=== PATIENT | male | born 1990 | race Caucasian/White ===

== ENCOUNTER 2018-05-16 09:41 | Emergency (ER) | payer MEDICAID ==
[2018-05-16] MEDS ORDERED: Ketorolac 60 MG/2 ML SDV IM ONE (10:09)
--- NOTE | 2018-05-16 10:13 | EDM.PDOC ---
ED HPI GENERAL MEDICAL PROBLEM - General Chief Complaint: Back Pain or Injury Stated Complaint: MID BACK BACK Time Seen by Provider: 05/16/18 10:10 Source of Information: Reports: Patient History Limitations: Reports: No Limitations - History of Present Illness INITIAL COMMENTS - FREE TEXT/NARRATIVE: pt has pain between the shoulder blades for about 2 weeks this is not getting better. He has not had a fall. 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 Onset: Gradual, Other (over a period of 2 weeks. ) Duration: Day(s): Location: Reports: Back Associated Symptoms: Reports: No Other Symptoms upper back Pain Score (Numeric/FACES): 8 - Related Data Allergies Allergy/AdvReac Type Severity Reaction Status Date / Time Penicillins Allergy Swelling Verified 05/16/18 09:55 Sulfa (Sulfonamide Allergy Swelling Verified 05/16/18 09:55 Antibiotics) Home Meds: Home Meds Cyclobenzaprine [Flexeril] 10 mg PO BID 05/16/18 [History] Past Medical History - Past Health History Medical/Surgical History: Denies Medical/Surgical History Social & Family History - Tobacco Use Smoking Status *Q: Current Every Day Smoker Years of Tobacco use: 5 Packs/Tins Daily: 0.5 - Recreational Drug Use Recreational Drug Use: No ED ROS GENERAL - Review of Systems Review Of Systems: See Below Constitutional: Reports: No Symptoms HEENT: Reports: No Symptoms Respiratory: Reports: No Symptoms Cardiovascular: Reports: No Symptoms Endocrine: Reports: No Symptoms GI/Abdominal: Reports: No Symptoms : Reports: No Symptoms Musculoskeletal: Reports: Back Pain, Other (pain between the shoulder blade. ) Skin: Reports: No Symptoms ED EXAM, UPPER BACK/NECK PAIN - Physical Exam Exam: See Below Text/Narrative:: pt arrived with pain between the shoulder blades . He works a [employer]. He has had pain for about 2 weeks. He did not fall or have a definite injury. Exam Limited By: No Limitations General Appearance: Alert, Anxious, Mild Distress Ears Exam: Normal TMs Nose Exam: Normal Inspection Throat/Mouth Exam: Normal Inspection Head Exam: Atraumatic Neck Exam: Non-Tender Cardiovascular/Respiratory: Regular Rate, Rhythm GI/Abdominal: Soft, Non-Tender (Male) Exam: Deferred Rectal (Males) Exam: Deferred Back Exam: Other (pain between the shoulder blades. He has alot of spasm in this site. ) Extremities: Normal Inspection Neurologic: Alert, Oriented x 3 Psychiatric: Normal Affect Course - Vital Signs Last Recorded V/S: Last Vital Signs Temp 36.5 C 05/16/18 09:55 Pulse 75 05/16/18 09:55 Resp 15 05/16/18 09:55 BP 129/77 05/16/18 09:55 Pulse Ox 99 05/16/18 09:55 - Orders/Labs/Meds Orders: Active Orders 24 hr Category Date Time Status Thoracic Spine 3V [CR] Stat Exams 05/16/18 10:09 Taken Meds: Medications Discontinued Medications Generic Name Dose Route Start Last Admin Trade Name Freq PRN Reason Stop Dose Admin Ketorolac Tromethamine 60 mg 05/16/18 10:09 05/16/18 10:36 Toradol IM 05/16/18 10:10 60 mg ONETIME ONE Administration Departure - Departure Time of Disposition: 10:54 Disposition: Home, Self-Care 01 Condition: Fair Clinical Impression: Muscle spasm, Scoliosis deformity of spine - Discharge Information Referrals: PCP,None [Primary Care Provider] - Forms: ED Department Discharge Care Plan Goals: moist warm packs to the mid thoracic spine, cont flexeril, tramodol 50mg q6h prn for pain, pt referal - My Orders Last 24 Hours: My Active Orders 05/16/18 10:09 Thoracic Spine 3V [CR] Stat - Assessment/Plan Last 24 Hours: My Active Orders 05/16/18 10:09 Thoracic Spine 3V [CR] Stat
--- NOTE | 2018-05-18 08:46 | CR ---
Thoracic Spine 3V CLINICAL HISTORY: Back pain FINDINGS: Patient has a levoscoliosis of the thoracic spine The vertebral bodies are normal in height . There is no significant osteophytosis. The pedicles are unremarkable. Impression: Levoscoliosis No fracture or osseous lesion
== END 2018-05-16 11:27 | disposition home or self-care (01) ==
LOC: JP.ED 09:41
DX: M62.830 Muscle spasm of back (principal); M41.9 Scoliosis, unspecified; F17.210 Nicotine dependence, cigarettes, uncomplicated; Z88.0 Allergy status to penicillin; Z88.2 Allergy status to sulfonamides
CPT/HCPCS: 72072; 96372; 99284; J1885

== ENCOUNTER 2018-05-26 07:35 | Emergency (ER) | payer MEDICAID ==
--- NOTE | 2018-05-26 08:18 | EDM.PDOC ---
ED HPI GENERAL MEDICAL PROBLEM - General Chief Complaint: Back Pain or Injury Stated Complaint: LOWER BACK PAIN Time Seen by Provider: 05/26/18 08:18 Source of Information: Reports: Patient History Limitations: Reports: No Limitations - History of Present Illness INITIAL COMMENTS - FREE TEXT/NARRATIVE: 28-year-old male with chronic occasional recurring back discomfort has an acute flare for the past 24 hours of his lower back, when he woke up this morning he couldn't even get out of bed. He became anxious and his fingers started tingling and he felt like he wasn't completely emptying his bladder and got concerned. He has no symptoms extending into the buttocks or lower extremities. He responded well to Toradol a few weeks ago, he just called the physical therapy department yesterday to schedule and appointment. No recent trauma. Onset: Gradual Quality: Reports: Burning, Sharp Severity: Moderate Associated Symptoms: Reports: Other (Hand paresthesias that have resolved, urine flow issues but no incontinence) Lower Back Pain Score (Numeric/FACES): 9 - Related Data Allergies Allergy/AdvReac Type Severity Reaction Status Date / Time Penicillins Allergy Swelling Verified 05/26/18 07:58 Sulfa (Sulfonamide Allergy Swelling Verified 05/26/18 07:58 Antibiotics) Home Meds: Home Meds Cyclobenzaprine [Flexeril] 10 mg PO BID PRN 05/16/18 [History] traMADol [Ultram] 50 mg PO Q6H PRN 05/26/18 [History] Past Medical History - Past Health History Medical/Surgical History: Denies Medical/Surgical History HEENT History: Reports: Impaired Vision Genitourinary History: Reports: Urinary Incontinence Musculoskeletal History: Reports: Back Pain, Chronic Other Musculoskeletal History: left lower back pain Neurological History: Reports: Headaches, Chronic, Seizure - Infectious Disease History Infectious Disease History: Reports: Chicken Pox - Past Surgical History Head Surgeries/Procedures: Reports: None HEENT Surgical History: Reports: None Neurological Surgical History: Reports: Scoliosis Musculoskeletal Surgical History: Reports: None Dermatological Surgical History: Reports: None Social & Family History - Tobacco Use Smoking Status *Q: Current Every Day Smoker Years of Tobacco use: 3 Packs/Tins Daily: 1 Used Tobacco, but Quit: No Second Hand Smoke Exposure: No - Caffeine Use Caffeine Use: Reports: Coffee - Recreational Drug Use Recreational Drug Use: No ED ROS GENERAL - Review of Systems Review Of Systems: See Below Constitutional: Denies: Fever, Chills, Malaise Respiratory: Denies: Shortness of Breath, Cough Cardiovascular: Denies: Chest Pain GI/Abdominal: Denies: Abdominal Pain, Nausea, Vomiting Musculoskeletal: Reports: Back Pain Skin: Reports: No Symptoms Neurological: Reports: Paresthesia (Hands) ED EXAM, UPPER BACK/NECK PAIN - Physical Exam Exam: See Below Exam Limited By: No Limitations General Appearance: Alert, No Apparent Distress (Looks uncomfortable but not distressed) Head Exam: Atraumatic Back Exam: Other (Visual inspection of the spine while standing he does appear to have fairly significant curvature of the spine. Muscles are firm and tight in the left paraspinous lumbar area. He has increased pain with rotation to the left against resistance but not the right. He has full range of motion flexing and extending but it is painful with flexion. No straight leg raising tenderness.) Course - Vital Signs Last Recorded V/S: Last Vital Signs Temp 98.2 F 05/26/18 08:07 Pulse 89 05/26/18 08:07 Resp 12 05/26/18 08:07 BP 128/79 05/26/18 08:07 Pulse Ox 98 05/26/18 08:07 - Orders/Labs/Meds Meds: Medications Discontinued Medications Generic Name Dose Route Start Last Admin Trade Name Mary PRN Reason Stop Dose Admin Ketorolac Tromethamine 60 mg 05/26/18 08:28 05/26/18 08:37 Toradol IM 05/26/18 08:29 60 mg ONETIME ONE Administration - Re-Assessments/Exams Free Text/Narrative Re-Assessment/Exam: 05/26/18 08:31 Explained to him the importance of exercise and strengthening his back muscles with his scoliosis. He needs to follow through with physical therapy, he'll be given another Toradol injection and 10 additional oral doses to take 3 times a day for the next 2 days. He still has Flexeril to take as needed. Departure - Departure Time of Disposition: 08:48 Disposition: Home, Self-Care 01 Condition: Good Clinical Impression: Low back pain Qualifiers: Chronicity: acute Back pain laterality: left Sciatica presence: without sciatica Qualified Code(s): M54.5 - Low back pain - Discharge Information Instructions: Back Pain, Adult, [id number] Referrals: PCP,None [Primary Care Provider] - Forms: ED Department Discharge Care Plan Goals: Take Toradol 3 times a day for the next 3 days. Increase activity as tolerated and follow through with physical therapy as planned. It's important you obtain a primary care provider to follow your progress if you're staying in the area. Return anytime if worsening despite treatment.
[2018-05-26] MEDS ORDERED: Ketorolac 60 MG/2 ML SDV IM ONE (08:28)
== END 2018-05-26 08:47 | disposition home or self-care (01) ==
LOC: JP.ED 07:35
DX: M54.5 Low back pain (principal); F17.210 Nicotine dependence, cigarettes, uncomplicated; Z88.0 Allergy status to penicillin; Z88.2 Allergy status to sulfonamides; Z79.899 Other long term (current) drug therapy
CPT/HCPCS: 96372; 99283; J1885

== ENCOUNTER 2020-02-14 12:36 | Emergency (ER) | payer MEDICAID ==
--- NOTE | 2020-02-14 13:08 | EDM.PDOC ---
ED HPI GENERAL MEDICAL PROBLEM - General Chief Complaint: ENT Problem Stated Complaint: TOOTHACHE Time Seen by Provider: 02/14/20 12:50 Source of Information: Reports: Patient History Limitations: Reports: No Limitations - History of Present Illness INITIAL COMMENTS - FREE TEXT/NARRATIVE: 30-year-old male with chronic dental caries, has developed pain and swelling in his left mandible over the past weeks. It is particularly bad over the past 2 days. No fevers or chills or significant facial swelling. Doxycycline has worked for him in the past, he reacts or is allergic to several other antibiotics he has an appointment with his dentist next week. Onset: Gradual Duration: Week(s): (2 weeks) Location: Reports: Face (Left mandible) Associated Symptoms: Reports: No Other Symptoms Tooth/Teeth Pain Score (Numeric/FACES): 10 - Related Data Allergies Allergy/AdvReac Type Severity Reaction Status Date / Time Penicillins Allergy Swelling Verified 02/14/20 12:46 Sulfa (Sulfonamide Allergy Swelling Verified 02/14/20 12:46 Antibiotics) Home Meds: Home Meds Cyclobenzaprine [Flexeril] 10 mg PO BID PRN 05/16/18 [History] Past Medical History - Past Health History Medical/Surgical History: Denies Medical/Surgical History HEENT History: Reports: Impaired Vision Genitourinary History: Reports: Urinary Incontinence Musculoskeletal History: Reports: Back Pain, Chronic Other Musculoskeletal History: left lower back pain Neurological History: Reports: Headaches, Chronic, Seizure, Other (See Below) Other Neuro History: scoliosis - Infectious Disease History Infectious Disease History: Reports: Chicken Pox - Past Surgical History Head Surgeries/Procedures: Reports: None Social & Family History - Tobacco Use Smoking Status *Q: Light Tobacco Smoker Years of Tobacco use: 3 Packs/Tins Daily: 0.7 - Caffeine Use Caffeine Use: Reports: Coffee Other Caffeine Use: 1-2 cups per day - Recreational Drug Use Recreational Drug Use: No ED ROS ENT - Review of Systems Review Of Systems: See Below Constitutional: Denies: Fever, Chills HEENT: Reports: Dental Pain Respiratory: Denies: Shortness of Breath Cardiovascular: Denies: Chest Pain GI/Abdominal: Denies: Nausea, Vomiting Skin: Denies: Erythema Neurological: Denies: Headache ED EXAM, ENT - Physical Exam Exam: See Below Exam Limited By: No Limitations General Appearance: Alert, No Apparent Distress (Looks uncomfortable but not distressed) Mouth/Throat: Other (Patient has widespread dental caries, the left gingival maxillary area is reddened and slightly swollen, there is percussion tenderness to the first and second molars. The lower incisors and canines are very eroded) Course - Vital Signs Last Recorded V/S: Last Vital Signs Temp 97.1 F 02/14/20 12:44 Pulse 81 02/14/20 12:44 Resp 16 02/14/20 12:44 BP 136/71 02/14/20 12:44 Pulse Ox 98 02/14/20 12:44 - Re-Assessments/Exams Free Text/Narrative Re-Assessment/Exam: 02/14/20 13:07 Patient was put on doxycycline 100 mg twice daily for 10 days, given 10 hydrocodone for extra pain control and was told to follow-up with his dentist as scheduled. A GUIDE EXCURSION search showed no narcotics in the past year. He can return if worsening despite treatment. Departure - Departure Time of Disposition: 13:20 Disposition: Home, Self-Care 01 Clinical Impression: Abscess, dental - Discharge Information Instructions: Dental Abscess, [id number] Referrals: PCP,None [Primary Care Provider] - Forms: ED Department Discharge Care Plan Goals: Take antibiotic twice daily as prescribed, use ibuprofen for pain and add stronger pain medication if needed as directed. Return if worsening such as increased facial swelling, fever or pain despite treatment. Otherwise follow- up with your dentist as scheduled. Sepsis Event Note - Evaluation Sepsis Screening Result: No Definite Risk - Focused Exam Vital Signs: Vital Signs Temp Pulse Resp BP Pulse Ox 02/14/20 12:44 97.1 F 81 16 136/71 98 Date Exam was Performed: 02/14/20 Time Exam was Performed: 16:58
== END 2020-02-14 13:20 | disposition home or self-care (01) ==
LOC: JP.ED 12:36
DX: K04.7 Periapical abscess without sinus (principal); K02.9 Dental caries, unspecified; F17.210 Nicotine dependence, cigarettes, uncomplicated; Z88.0 Allergy status to penicillin; Z88.2 Allergy status to sulfonamides
CPT/HCPCS: 99282

== ENCOUNTER 2020-10-31 16:27 | Emergency (ER) | payer MEDICAID ==
--- NOTE | 2020-10-31 17:24 | EDM.PDOC ---
ED HPI GENERAL MEDICAL PROBLEM - General Chief Complaint: General Stated Complaint: TOOTH PAIN LOWER LEFT SIDE Time Seen by Provider: 10/31/20 17:00 Source of Information: Reports: Patient History Limitations: Reports: No Limitations - History of Present Illness INITIAL COMMENTS - FREE TEXT/NARRATIVE: 30-year-old male presents with acute on chronic dental pain. He has severely decayed and diseased teeth on the mandible which cause chronic pain. Unfortunately he has a type of insurance and is not accepted at most dental offices. He has called everywhere and only 2 in the state accept his type of [employer] Shield, and they are both booked out 6 to 9 months. He is having some increased swelling and pain through the incisors and canines on the left mandible over the past several days. I saw him for a similar issue this spring and he responded to doxycycline. He was rechecked in the dentist office after that and had a few teeth pulled but that dentist has retired and he cannot find anyone else to see him. I checked [employer] and he has not had hydrocodone since I saw him in February. He works the rest of the week but has Friday and Friday off and can be seen next week. Onset: Gradual Duration: Chronic Associated Symptoms: Reports: No Other Symptoms Left Lower Tooth/Teeth Pain Score (Numeric/FACES): 9 - Related Data Allergies Allergy/AdvReac Type Severity Reaction Status Date / Time Penicillins Allergy Swelling Verified 02/14/20 12:46 Sulfa (Sulfonamide Allergy Swelling Verified 02/14/20 12:46 Antibiotics) Home Meds: Home Meds Cyclobenzaprine [Flexeril] 10 mg PO BID PRN 05/16/18 [History] Ibuprofen 600 mg PO QID 10/31/20 [History] Past Medical History - Past Health History Medical/Surgical History: Denies Medical/Surgical History HEENT History: Reports: Impaired Vision Genitourinary History: Reports: Urinary Incontinence Musculoskeletal History: Reports: Back Pain, Chronic Other Musculoskeletal History: left lower back pain Neurological History: Reports: Headaches, Chronic, Seizure, Other (See Below) Other Neuro History: scoliosis - Infectious Disease History Infectious Disease History: Reports: Chicken Pox - Past Surgical History Head Surgeries/Procedures: Reports: None HEENT Surgical History: Reports: None Neurological Surgical History: Reports: Scoliosis Musculoskeletal Surgical History: Reports: None Dermatological Surgical History: Reports: None Social & Family History - Tobacco Use Tobacco Use Status *Q: Current Every Day Tobacco User Years of Tobacco use: 2 Packs/Tins Daily: 0.5 - Caffeine Use Caffeine Use: Reports: Tea Other Caffeine Use: 1-2 cups per day - Recreational Drug Use Recreational Drug Use: No ED ROS GENERAL - Review of Systems Review Of Systems: See Below Constitutional: Denies: Fever, Chills HEENT: Reports: Dental Pain Respiratory: Denies: Shortness of Breath Cardiovascular: Denies: Chest Pain GI/Abdominal: Denies: Nausea, Vomiting Skin: Denies: Erythema Neurological: Denies: Headache Psychiatric: Reports: No Symptoms ED EXAM, GENERAL - Physical Exam Exam: See Below Exam Limited By: No Limitations General Appearance: Alert, No Apparent Distress Throat/Mouth: Other (The mandibular incisors and canines especially on the left side have severe erosion and discoloration with gingival erythema and swelling. No cervical adenopathy.) Respiratory/Chest: No Respiratory Distress Neurological: Alert, Oriented Psychiatric: Normal Affect, Normal Mood Skin Exam: Warm, Dry Course - Vital Signs Last Recorded V/S: Last Vital Signs Temp 98.5 F 10/31/20 17:03 Pulse 75 10/31/20 17:03 Resp 16 10/31/20 17:03 BP 119/67 10/31/20 17:03 Pulse Ox 98 10/31/20 17:03 - Re-Assessments/Exams Free Text/Narrative Re-Assessment/Exam: 10/31/20 17:23 Patient will be placed on doxycycline 100 mg twice daily, continue anti- inflammatories and given 10 hydrocodone for extra pain control. A dental referral for our community dental clinic was made for next Friday, hopefully the y can work him in and initiate treatment. Departure - Departure Time of Disposition: 17:37 Disposition: Home, Self-Care 01 Clinical Impression: Abscess, dental - Discharge Information Instructions: Skin Abscess, [id number] Referrals: PCP,None [Primary Care Provider] - Forms: ED Department Discharge Care Plan Goals: Take antibiotic twice daily until you are seen by the dentist. A regular dose of naproxen or ibuprofen will be helpful with pain, and hydrocodone for extra pain control if needed. I have made a dental referral for Friday morning, hopefully they can work you in at that time. Sepsis Event Note (ED) - Evaluation Sepsis Screening Result: No Definite Risk
== END 2020-10-31 17:38 | disposition home or self-care (01) ==
LOC: JP.ED 16:27
DX: K04.7 Periapical abscess without sinus (principal); F17.210 Nicotine dependence, cigarettes, uncomplicated; Z88.0 Allergy status to penicillin; Z88.2 Allergy status to sulfonamides
CPT/HCPCS: 99282